=== PATIENT | female | born 1975 | race Asian ===

== ENCOUNTER 2018-10-30 08:01 | Emergency (ER) | payer OTHER, BC ==
[~2018-10-30] VITALS: Ht 162.6 cm; Wt 100.0 kg
[2018-10-30] MEDS ORDERED: IBUPROFEN 800 MG TAB PO ONE (08:45)
--- NOTE | 2018-10-30 09:36 | REP ---
Clinical: Trauma. Technique: AP, lateral, bilateral oblique views right wrist . Findings: The carpal bones, surrounding osseous structures, soft tissues, and joint spaces are normal. There is no evidence for acute fracture or dislocation. No subcutaneous emphysema or radiodense foreign body. Impression: Normal wrist series. No acute fracture or dislocation Electronically Signed by Blake Mcneal MD 10/30/2018 09:27 A
--- NOTE | 2018-10-30 09:36 | REP ---
Clinical: Trauma. Technique: AP and lateral views of the right forearm. Findings: Osseous structures, joint spaces, and surrounding soft tissues are normal. No acute fracture or dislocation. No subcutaneous emphysema or radiodense foreign body. Impression: No acute fracture or dislocation Electronically Signed by Blake Mcneal MD 10/30/2018 09:28 A
[2018-10-30 10:12] VITALS: BP 154/81
== END 2018-10-30 10:25 | disposition home or self-care (01) ==
LOC: M ED 08:01 → EDBD 08:01 → M ED 10:25
DX: S50.11XA Contusion of right forearm, initial encounter (principal); V43.52XA Car driver injured in collision with other type car in traffic accident, initial encounter; Y92.9 Unspecified place or not applicable; Y93.9 Activity, unspecified; Y99.9 Unspecified external cause status

== ENCOUNTER 2022-12-23 09:01 | Emergency (ER) | payer BC, OTHER ==
[~2022-12-23] VITALS: Ht 162.6 cm; Wt 98.8 kg
[2022-12-23] MEDS ORDERED: PRED10PA PO (09:06)
[2022-12-23 12:58] VITALS: BP 144/72; TEMP 97.8; O2SAT 99
[2022-12-23] MEDS ORDERED: ALLE180T33 PO (12:59)
[2022-12-23] MEDS ORDERED: MOME0.1C3 TOP (12:59)
== END 2022-12-23 13:24 | disposition home or self-care (01) ==
LOC: M ED 09:01
DX: L25.9 Unspecified contact dermatitis, unspecified cause (principal); Z79.52 Long term (current) use of systemic steroids

== ENCOUNTER → 2023-10-16 | Outpatient (CLI) | payer BC ==
[~2023-10-16] MED LIST: ALLE180T33 PO; MOME0.1C3 TOP; PRED10PA PO
== END ==
LOC: M RAD 10:13
PROVIDERS: ATTEND Nurse Practitioner Family
DX: E07.89 Other specified disorders of thyroid (principal)